=== PATIENT | female | born 1935 | race Caucasian/White ===

== ENCOUNTER → 2019-04-10 | Outpatient (CLI) | payer MEDICARE, OTHER | LOC: CARD 10:28 | PROVIDERS: ATTEND Family Medicine | DX: I08.0 Rheumatic disorders of both mitral and aortic valves (principal) | CPT/HCPCS: 93306 ==

== ENCOUNTER → 2020-10-21 | Outpatient (CLI) | payer MEDICARE, OTHER | LOC: CARD 14:01 | PROVIDERS: ATTEND Family Medicine | DX: I08.0 Rheumatic disorders of both mitral and aortic valves (principal) | CPT/HCPCS: 93306 ==

== ENCOUNTER → 2021-09-22 | Outpatient (CLI) | payer MEDICARE, OTHER | LOC: CARD 12:00 | PROVIDERS: ATTEND Family Medicine | DX: I08.0 Rheumatic disorders of both mitral and aortic valves (principal) | CPT/HCPCS: 93306 ==

== ENCOUNTER 2022-10-15 09:18 | Inpatient (IN) | payer MEDICARE, OTHER ==
[~2022-10-15] VITALS: Ht 157.4 cm; Wt 65.7 kg
[2022-10-15] VITALS (8 sets, daily range): BP systolic 123–211; BP diastolic 65–127
--- NOTE | 2022-10-15 09:38 | ED Cardiac General ---
History of Present Illness General Chief Complaint: Cardiac/General Problems Stated Complaint: ABN EKG Source: patient, RN/MD Exam Limitations: no limitations History of Present Illness Date Seen by Provider: Oct 15, 2022 Time Seen by Provider: 09:34 Initial Comments 87yoF with past medical history most notable for hypertension coming in as a referral from the clinic. Roughly 3 days ago she had a couple minute episode where her legs were feeling weak bilaterally and she had some right arm discomfort which was more throbbing in nature. When this happens, she takes a peppermint and the pain immediately goes away. She has been doing this for over a year. Happens maybe once every several weeks. She was just resting when it happened. Denies any nausea or vomiting associated with it, no sweats, fever, chest pain, shortness of breath, abdominal pain, focal weakness or numbness, vision changes, headache, cough, or any other concerns. Allergies and Home Medications Allergies Coded Allergies: No Known Drug Allergies (Unverified , 10/15/22) Patient Home Medication List Home Medication List Reviewed: Yes Review of Systems Review of Systems Constitutional: No fever EENTM: No Symptoms Reported Respiratory: No Symptoms Reported Cardiovascular: No Symptoms Reported Gastrointestinal: No Symptoms Reported Genitourinary: No Symptoms Reported Musculoskeletal: see HPI Psychiatric/Neurological: See HPI Past Pqwhehv-Wxicmx-Uwrnbs Hx Patient Social History Tobacco Use?: No Substance use?: No Alcohol Use?: No Physical Exam Vital Signs Vital Signs - First Documented 10/15/22 09:23 Temp 36.2 Pulse 92 Resp 20 B/P (MAP) 201/101 (134) Pulse Ox 97 O2 Delivery Room Air Capillary Refill : Height, Weight, BMI Height: '" Weight: lbs. oz. kg; BMI Method: General Appearance: No Apparent Distress, WD/WN HEENT: PERRL/EOMI, Normal ENT Inspection, Pharynx Normal Neck: Full Range of Motion, Normal Inspection, Non Tender, Supple Respiratory: Chest Non Tender, Lungs Clear, Normal Breath Sounds, No Accessory Muscle Use, No Respiratory Distress Cardiovascular: Regular Rate, Rhythm, Normal Peripheral Pulses, Systolic Murmur Gastrointestinal: Normal Bowel Sounds, Non Tender, Soft; No Distended, No Guarding Extremity: Normal Capillary Refill, Normal Inspection, Normal Range of Motion, Non Tender, No Calf Tenderness, No Pedal Edema Neurologic/Psychiatric: Alert, No Motor/Sensory Deficits, Normal Mood/Affect Skin: Normal Color, Warm/Dry Progress/Results/Core Measures Results/Orders Lab Results Laboratory Tests Test 10/15/22 09:43 Range/Units White Blood Count 9.1 4.3-11.0 10^3/uL Red Blood Count 4.41 3.80-5.11 10^6/uL Hemoglobin 13.6 11.5-16.0 g/dL Hematocrit 39 35-52 % Mean Corpuscular Volume 89 80-99 fL Mean Corpuscular Hemoglobin 31 25-34 pg Mean Corpuscular Hemoglobin Concent 35 32-36 g/dL Red Cell Distribution Width 13.2 10.0-14.5 % Platelet Count 322 130-400 10^3/uL Mean Platelet Volume 9.1 9.0-12.2 fL Immature Granulocyte % (Auto) 0 % Neutrophils (%) (Auto) 71 42-75 % Lymphocytes (%) (Auto) 17 12-44 % Monocytes (%) (Auto) 7 0-12 % Eosinophils (%) (Auto) 4 0-10 % Basophils (%) (Auto) 1 0-10 % Neutrophils # (Auto) 6.4 1.8-7.8 10^3/uL Lymphocytes # (Auto) 1.6 1.0-4.0 10^3/uL Monocytes # (Auto) 0.7 0.0-1.0 10^3/uL Eosinophils # (Auto) 0.3 0.0-0.3 10^3/uL Basophils # (Auto) 0.1 0.0-0.1 10^3/uL Immature Granulocyte # (Auto) 0.0 0.0-0.1 10^3/uL Prothrombin Time 12.9 12.2-14.7 SEC INR Comment 0.9 0.8-1.4 Activated Partial Thromboplast Time 32 24-35 SEC Sodium Level 139 135-145 MMOL/L Potassium Level 4.3 3.6-5.0 MMOL/L Chloride Level 102 98-107 MMOL/L Carbon Dioxide Level 27 21-32 MMOL/L Anion Gap 10 5-14 MMOL/L Blood Urea Nitrogen 16 7-18 MG/DL Creatinine 0.67 0.60-1.30 MG/DL Estimat Glomerular Filtration Rate 85 BUN/Creatinine Ratio 24 Glucose Level 97 70-105 MG/DL Calcium Level 9.8 8.5-10.1 MG/DL Corrected Calcium 9.6 8.5-10.1 MG/DL Magnesium Level 2.3 1.6-2.4 MG/DL Total Bilirubin 0.5 0.1-1.0 MG/DL Aspartate Amino Transf (AST/SGOT) 30 5-34 U/L Alanine Aminotransferase (ALT/SGPT) 14 0-55 U/L Alkaline Phosphatase 74 40-136 U/L Troponin I 0.88 *H <0.30 NG/ML Pro-B-Type Natriuretic Peptide 2190.0 H <450.0 PG/ML Total Protein 6.9 6.4-8.2 GM/DL Albumin 4.3 3.2-4.5 GM/DL Lipase 27 8-78 U/L My Orders Orders - MARIA FERNANDA MAY MD Cbc With Automated Diff (10/15/22 09:34) Magnesium (10/15/22 09:34) Chest 1 View Ap/Pa Only (10/15/22 09:34) Ekg Tracing (10/15/22 09:34) Comprehensive Metabolic Panel (10/15/22 09:34) Protime With Inr (10/15/22 09:34) Partial Thromboplastin Time (10/15/22 09:34) O2 (10/15/22 09:34) Monitor-Rhythm Ecg Trace Only (10/15/22 09:34) Ed Iv/Invasive Line Start (10/15/22 09:34) Lipase (10/15/22 09:34) Troponin I Fs (10/15/22 09:34) Probnp Fs (10/15/22 09:34) Aspirin Chewable Tablet (Baby Aspirin Ch (10/15/22 10:30) Nitroglycerin Ointment (Nitrobid Ointme (10/15/22 10:30) Medications Given in ED Current Medications Medications Dose Ordered Sig/Teresa Route Start Time Stop Time Status Last Admin Dose Admin Aspirin 324 mg ONCE ONCE PO 10/15/22 10:30 10/15/22 10:31 DC 10/15/22 10:36 324 MG Nitroglycerin 1 inch ONCE ONCE TOP 10/15/22 10:30 10/15/22 10:31 DC 10/15/22 10:37 1 INCH Vital Signs/I&O 10/15/22 09:23 Temp 36.2 Pulse 92 Resp 20 B/P (MAP) 201/101 (134) Pulse Ox 97 O2 Delivery Room Air Progress Progress Note : Progress Note 87-year-old female being referred from walk-in clinic due to right arm pain and leg weakness. ABCs were intact and vitals were stable on presentation. Physical exam with no weakness or numbness noted. She does have clear systolic murmur. EKG with signs of LVH mostly with no STEMI. An IV was placed and basic labs were obtained including cardiac biomarkers. Blood pressure was 200/100 on arrival. She was given aspirin as well as Nitropaste. Labs significant for elevated troponin at 0.88 and elevated pro BNP around 1999. It is possible she was having an atypical ACS type picture and an event that potentially was missed. I contacted Dr. Logan. He believes this could be a type II NSTEMI in t he setting of elevated blood pressure, but would like to trend her troponins accordingly and monitor her. I then contacted Dr. Ziegler who will admit the patient to the cardiac stepdown unit for further evaluation and management under observation status. Initial ECG Impression Date: Oct 15, 2022 Initial ECG Impression Time: 09:28 Initial ECG Rate: 81 Initial ECG Rhythm: Normal Sinus Comment Narrow QRS, left axis deviation, LVH by aVL criteria, ST depression in the high lateral leads, no STEMI, no prior EKG to compare to Diagnostic Imaging Diagonstic Imaging: Xray (chest) Comments [facility], [place] NAME: LO[facility] REC#: [id number] PT STATUS: REG ER : 1935 PHYSICIAN: MARIA FERNANDA MAY MD ADMIT DATE: 10/15/22/ER FS Draft Date of Exam:10/15/22 CHEST 1 VIEW AP/PA ONLY INDICATION: Chest pain Frontal chest obtained at 9:40 a.m. Heart is mildly enlarged. There is hyperinflation. There is no focal infiltrate or pneumothorax or pleural fluid. IMPRESSION: Cardiomegaly and hyperinflation with no acute process in the chest. Dictated on workstation # [id number] Dict: 10/15/22 0948 Trans: 10/15/22 0949 [facility] [id number] Interpreted by: RITESH RAM MD Electronically signed by: Departure Impression Primary Impression: NSTEMI (non-ST elevated myocardial infarction) Disposition: 30 STILL A PATIENT Condition: Stable Admissions Decision to Admit Reason: Admit from ER (General) Decision to Admit/Date: Oct 15, 2022 Time/Decision to Admit Time: 10:50 Transfer Method of Transfer: EMS Departure-Patient Inst. Referrals: WINIFRED OSMAN APRN (PCP) Primary Care Physician [facility] [place] Primary Care Physician MARIA FERNANDA MAY MD Oct 15, 2022 09:38
--- NOTE | 2022-10-15 09:49 | Diagnostic Imaging Report ---
INDICATION: Chest pain Frontal chest obtained at 9:40 a.m. Heart is mildly enlarged. There is hyperinflation. There is no focal infiltrate or pneumothorax or pleural fluid. IMPRESSION: Cardiomegaly and hyperinflation with no acute process in the chest. Dictated by: Dictated on workstation # [id number]
[2022-10-15 09:51] LABS: BASOPHILS # (AUTO) 0.1 10^3/uL (0.0-0.1); BASOPHILS % (AUTO) 1 % (0-10); EOSINOPHILS # (AUTO) 0.3 10^3/uL (0.0-0.3); EOSINOPHILS % (AUTO) 4 % (0-10); HEMATOCRIT 39 % (35-52); HEMOGLOBIN 13.6 g/dL (11.5-16.0); LYMPHOCYTES # (AUTO) 1.6 10^3/uL (1.0-4.0); LYMPHOCYTES % (AUTO) 17 % (12-44); MEAN CORPUSCULAR HEMOGLOBIN 31 pg (25-34); MEAN CORPUSCULAR HGB CONC 35 g/dL (32-36); MEAN CORPUSCULAR VOLUME 89 fL (80-99); MEAN PLATELET VOLUME 9.1 fL (9.0-12.2); MONOCYTES # (AUTO) 0.7 10^3/uL (0.0-1.0); MONOCYTES % (AUTO) 7 % (0-12); NEUTROPHILS # (AUTO) 6.4 10^3/uL (1.8-7.8); NEUTROPHILS % (AUTO) 71 % (42-75); PLATELET COUNT 322 10^3/uL (130-400); WHITE BLOOD COUNT 9.1 10^3/uL (4.3-11.0)
[2022-10-15 10:19] LABS: INR 0.9 (0.8-1.4); PROTHROMBIN TIME PATIENT 12.9 SEC (12.2-14.7)
[2022-10-15 10:22] LABS: CALCIUM 9.8 MG/DL (8.5-10.1); CREATININE SERUM 0.67 MG/DL (0.60-1.30); POTASSIUM 4.3 MMOL/L (3.6-5.0)
[2022-10-15 10:23] LABS: ALBUMIN 4.3 GM/DL (3.2-4.5); BILIRUBIN,TOTAL 0.5 MG/DL (0.1-1.0); MAGNESIUM 2.3 MG/DL (1.6-2.4); TOTAL PROTEIN 6.9 GM/DL (6.4-8.2)
[2022-10-15] MEDS ORDERED: ASPIRIN 81 MG CHEW (CHILDREN'S ASA) PO ONE (10:30)
[2022-10-15] MEDS ORDERED: NITROGLYCERIN 2% OINT 1 GM UNIT DOSE PACKET TOP ONE (10:30)
[2022-10-15] MEDS ORDERED: morphine INJ 4 MG/ML 1 ML (VIAL/SYRINGE) IV PRN (12:45)
[2022-10-15] MEDS ORDERED: ONDANSETRON 4 MG/2 ML (SDV) Z0FRAN IVP PRN (12:45)
[2022-10-15] MEDS ORDERED: NITROGLYCERIN 0.4 MG SL TABS BTL 25'S SL PRN (12:45)
[2022-10-15] MEDS ORDERED: PATIENT MAY USE OWN MEDS, ALL PO SCH (12:45)
[2022-10-15] MEDS: cloNIDine 0.1 MG (CATAPRES) TAB PO PRN ×2 (12:53→18:27)
[2022-10-15] MEDS ORDERED: FLAX100032 PO (14:01)
[2022-10-15] MEDS ORDERED: LECI400C PO (14:01)
[2022-10-15] MEDS ORDERED: VITAMIN PO (14:01)
[2022-10-15] MEDS ORDERED: LISI20TA26 PO (14:01)
[2022-10-15] MEDS ORDERED: GARL500C2 PO (14:01)
[2022-10-15] MEDS ORDERED: IBUP-2473 PO ×2 (14:01)
[2022-10-15] MEDS ORDERED: ASPI-1238 PO (14:01)
[2022-10-15] MEDS ORDERED: LATA5DRO OU (14:01)
[2022-10-15] MEDS ORDERED: BRIMON0.2 OS (14:01)
[2022-10-15] MEDS ORDERED: CALC-823 PO (14:01)
[2022-10-15] MEDS ORDERED: CYAN500T8 PO (14:01)
[2022-10-15] MEDS ORDERED: VIT1CAPS44 PO (14:01)
--- NOTE | 2022-10-15 14:23 | History & Physical ---
LIDIA SANZ 10/15/22 1423: History of Present Illness History of Present Illness Reason for visit/HPI Ms. Blackmon is an 87 y/o female with a PMHx of HTN who presents with atypical chest pain and elevated troponins. The patient reports for the past 2-3 years she has been experiencing intermittent chest pain, bilateral arm pain, upper back pain, and neck pain. Patient reports the pain will occur at rest and will sometimes wake her from her sleep. Patient states activity does not exacerbate or bring about the chest pain. When the patient is experiencing this sharp, radiating pain, she will eat a peppermint and states the pain subsides. Patient recently switched PCPs to [facility] in [place]. Patient made an appointment with [facility] this morning due to R arm pain and bilateral lower extremity weakness she experienced on Saturday. Patient reports the arm pain and weakness have improved since onset. Patient denies any activity or injury that occurred at time of onse t of symptoms. The patient was sent to the [place] ED for evaluation and is being admitted for observation under the Hospitalist service for suspected NSTEMI with Cardiology following. Date of Admission Oct 15, 2022 at 11:14 Date Seen by a Provider: Oct 15, 2022 Time Seen by a Provider: 15:00 I consulted on this patient on 10/15/22 14:16 Attending Physician Amanda Wilson Aprn Admitting Physician Admitting Physician: Liss Angela MD Attending Physician: Liss Angela MD Consult Allergies and Home Medications Allergies Coded Allergies: No Known Drug Allergies (Unverified , 10/15/22) Patient Home Medication List Home Medication List Reviewed: Yes Aspirin (Aspirin EC) 81 Mg Tablet.dr, 81 MG PO HS, (Reported) Entered as Reported by: SMITA MONROE on 10/15/221400 Last Action: Continued Brimonidine Tartrate (Brimonidine Tartrate) 0.2 % Btl, 1 DROP OS BID, (Reported) Entered as Reported by: SMITA MONROE on 10/15/221400 Last Action: Continued Calcium Carbonate (Calcium) 500 Mg Calcium (1250 Mg) Tablet, 500 MG PO BID, (Reported) Entered as Reported by: SMITA MONROE on 10/15/221400 Last Action: Converted Cyanocobalamin (Vitamin B-12) (Vitamin B-12) 500 Mcg Tablet, 500 MCG PO DAILY, (Reported) Entered as Reported by: SMITA MONROE on 10/15/221400 Last Action: Held Flaxseed Oil (Flaxseed) 1,000 Mg Capsule, 1,000 MG PO BID, (Reported) Entered as Reported by: SMITA MONROE on 10/15/221400 Last Action: Held Garlic (Garlic) 500 Mg Capsule, 500 MG PO DAILY, (Reported) Entered as Reported by: SMITA MONROE on 10/15/221400 Last Action: Held Ibuprofen (Ibuprofen) 200 Mg Tablet, 400 MG PO HS, (Reported) Entered as Reported by: SMITA MONROE on 10/15/221400 Last Action: Held Ibuprofen (Ibuprofen) 200 Mg Tablet, 200 MG PO DAILY, (Reported) Entered as Reported by: SMITA MONROE on 10/15/221400 Last Action: Held Latanoprostene Bunod (Vyzulta) 0.024 % Drops, 1 DROP OU HS, (Reported) Entered as Reported by: SMITA MONROE on 10/15/221400 Last Action: Converted Lecithin, Soy (Lecithin) 400 Mg Capsule, 400 MG PO BID, (Reported) Entered as Reported by: SMITA MONROE on 10/15/221400 Last Action: Held Lisinopril (Lisinopril) 20 Mg Tablet, 20 MG PO DAILY, (Reported) Entered as Reported by: SMITA MONROE on 10/15/221400 Last Action: Continued Vit C/E/Zn/Coppr/Lutein/Zeaxan (Preservision Areds 2 Softgel) 250MG-90MG Capsule, 1 EACH PO BID, (Reported) Entered as Reported by: SMITA MONROE on 10/15/221400 Last Action: Held [Vitamin B10] , 1 EA PO HS, (Reported) Entered as Reported by: SMITA OMNROE on 10/15/221400 Last Action: Held Past Scrcxyx-Yjoivv-Btfyzq Hx Patient Social History Number of Children: 6 Tobacco Use?: No Use of E-Cig and/or Vaping dev: No Substance use?: No Alcohol Use?: Yes Alcohol type: Wine Alcohol Frequency: Once in a while Pt feels they are or have been: No Current Status status: No Advance Directives: No Communicates: Verbally Primary Language: Sri [place]ankan Preferred Spoken Language: [place]an Is interpretation needed?: No Sensory deficits: Vision impairment, Hearing impairment Implanted or Applied Medical D: None Past Medical History Surgeries: Orthopedic (bilateral knees) Arthritis (bilateral shoulders) Glaucoma Family Medical History Cancer (father: colon, mother: uterine), Other Conditions/Hx (father: CAD, unspecified age) Review of Systems Constitutional: no symptoms reported EENTM: no symptoms reported Respiratory: dyspnea on exertion Cardiovascular: no symptoms reported; No chest pain, No Hx of Intervention, No palpitations Gastrointestinal: no symptoms reported : No Musculoskeletal: joint pain (bilateral shoulders due to arthritis) Psychiatric/Neurological: No Symptoms Reported Physical Exam Vital Signs Vital Signs - First Documented 10/15/22 09:23 Temp 36.2 Pulse 92 Resp 20 B/P (MAP) 201/101 (134) Pulse Ox 97 O2 Delivery Room Air Capillary Refill : Less Than 3 Seconds Height, Weight, BMI Height: '" Weight: lbs. oz. kg; 26.51 BMI Method: General Appearance: No Apparent Distress, WD/WN Respiratory: Lungs Clear, Normal Breath Sounds, No Accessory Muscle Use, No Respiratory Distress Cardiovascular: Systolic Murmur (4/6) Gastrointestinal: Normal Bowel Sounds, Non Tender, Soft Extremity: No Pedal Edema Neurologic/Psychiatric: Alert, Oriented x3, Normal Mood/Affect Skin: Normal Color, Warm/Dry Assessment/Plan Assessment and Plan Problems: (1) Hypertension Status: Chronic Assessment & Plan: -Monitor BP -Medication reconciliation and resume lisinopril 20mg PO qd -Clonidine 0.1mg PO TID PRN SBP >180, DBP >110 -Metoprolol 25mg PO BID (2) NSTEMI (non-ST elevated myocardial infarction) Status: Acute Assessment & Plan: NSTEMI -Troponin 0.88 -> 1.037 on 10/15 -Appreciate plan per Cardiology -NPO for cardiac catheterization if indicated per Cardiology -ASA 81mg PO qd -Metoprolol 25mg PO BID -Morphine 4mg IV Q3H PRN -Statin therapy and lipid panel -Anti-coagulation - appreciate plan per Cardiology -Echocardiogram (3) Elevated troponin Status: Acute Assessment & Plan: NSTEMI with elevated troponin -Troponin 0.88 -> 1.037 on 10/15 -Appreciate plan per Cardiology -ASA 81mg PO qd -Metoprolol 25mg PO BID -Morphine 4mg IV Q3H PRN -Statin therapy and lipid panel -Anti-coagulation - appreciate plan per Cardiology -Echocardiogram (4) Elevated brain natriuretic peptide (BNP) level Status: Acute Assessment & Plan: Elevated ProBNP of 2190 on 10/15 -Echo pending -There are no clinical signs of heart failure ie peripheral edema, SOA at rest -Continue to monitor patient's condition Admission Diagnosis Admission Status: Observation LISS ANGELA MD 10/15/22 1552: Allergies and Home Medications Allergies Coded Allergies: No Known Drug Allergies (Unverified , 10/15/22) Patient Home Medication List Aspirin (Aspirin EC) 81 Mg Tablet.dr, 81 MG PO HS, (Reported) Entered as Reported by: SMITA MONROE on 10/15/221400 Last Action: Continued Brimonidine Tartrate (Brimonidine Tartrate) 0.2 % Btl, 1 DROP OS BID, (Reported) Entered as Reported by: SMITA MONROE on 10/15/221400 Last Action: Continued Calcium Carbonate (Calcium) 500 Mg Calcium (1250 Mg) Tablet, 500 MG PO BID, (Reported) Entered as Reported by: SMITA MONROE on 10/15/221400 Last Action: Converted Cyanocobalamin (Vitamin B-12) (Vitamin B-12) 500 Mcg Tablet, 500 MCG PO DAILY, (Reported) Entered as Reported by: SMITA MONROE on 10/15/221400 Last Action: Held Flaxseed Oil (Flaxseed) 1,000 Mg Capsule, 1,000 MG PO BID, (Reported) Entered as Reported by: SMITA MONROE on 10/15/221400 Last Action: Held Garlic (Garlic) 500 Mg Capsule, 500 MG PO DAILY, (Reported) Entered as Reported by: SMITA MONROE on 10/15/221400 Last Action: Held Ibuprofen (Ibuprofen) 200 Mg Tablet, 400 MG PO HS, (Reported) Entered as Reported by: SMITA MONROE on 10/15/221400 Last Action: Held Ibuprofen (Ibuprofen) 200 Mg Tablet, 200 MG PO DAILY, (Reported) Entered as Reported by: SMITA MONROE on 10/15/221400 Last Action: Held Latanoprostene Bunod (Vyzulta) 0.024 % Drops, 1 DROP OU HS, (Reported) Entered as Reported by: SMITA MONROE on 10/15/221400 Last Action: Converted Lecithin, Soy (Lecithin) 400 Mg Capsule, 400 MG PO BID, (Reported) Entered as Reported by: SMITA MONROE on 10/15/221400 Last Action: Held Lisinopril (Lisinopril) 20 Mg Tablet, 20 MG PO DAILY, (Reported) Entered as Reported by: SMITA MONROE on 10/15/221400 Last Action: Continued Vit C/E/Zn/Coppr/Lutein/Zeaxan (Preservision Areds 2 Softgel) 250MG-90MG Capsule, 1 EACH PO BID, (Reported) Entered as Reported by: SMITA MONROE on 10/15/221400 Last Action: Held [Vitamin B10] , 1 EA PO HS, (Reported) Entered as Reported by: SMITA MONROE on 10/15/221400 Last Action: Held Supervisory-Addendum Brief Verification & Attestation Participated in pt care: history, MDM, physical Personally performed: exam, history, MDM, supervision of care Care discussed with: Medical Student Procedures: n/a Verification and Attestation of Medical Student E/M Service A medical student performed and documented this service in my presence. I r eviewed and verified all information documented by the medical student and made modifications to such information, when appropriate. I personally performed the physical exam and medical decision making. Liss Angela, Oct 15, 2022,15:52 LIDIA SANZ Oct 15, 2022 14:23 LISS ANGELA MD Oct 15, 2022 15:52
[2022-10-15] MEDS: meTOprolol TARTRATE 25 MG (LOPRESSOR) TABLET PO SCH ×2 (14:38→20:53)
--- NOTE | 2022-10-15 17:25 | Consultation-Cardiology ---
HPI-Cardiology Cardiology Consultation Date of Consultation 10/15/22 Date of Admission Time Seen by Provider: 17:20 Indication: Non-ST elevation myocardial infarction HPI 87-year-old lady with no known cardiac history, reporting knowing about her heart murmur and hypertension. Patient reporting chronic stable angina with shortness of breath and some chest pain described as more of a back pain radiating up to her right shoulder and right side of the jaw and neck with exertion. Has been having more frequent episodes recently. Was seen at her primary care physician and she was sent to the emergency room for evaluation. On my evaluation she was pleasantly laying down comfortably, feeling well. Denied any active pain. Home Medications & Allergies Allergies: Coded Allergies: No Known Drug Allergies (Unverified , 10/15/22) Home Medication List Reviewed: Yes WDV-Qnhagy-Ykvhro Hx Patient Social History Marital Status: Number of Children: 6 Have you traveled recently?: No Alcohol Use?: Yes Past Medical History Discussed below Family Medical History Significant Family History: Cancer (father: colon, mother: uterine), Other Conditions/Hx (father: CAD, unspecified age) Family Medical Hx Noncontributory Review of Systems-General Review of Systems Constitutional: no symptoms reported EENTM: no symptoms reported Respiratory: dyspnea on exertion Cardiovascular: see HPI, chest pain; No edema, No Hx of Intervention, No palpitations, No syncope, No vascular heart diseas, No other Gastrointestinal: no symptoms reported, see HPI Genitourinary: no symptoms reported, see HPI : No Musculoskeletal: joint pain (bilateral shoulders due to arthritis) Skin: no symptoms reported, see HPI Psychiatric/Neurological: No Symptoms Reported Reviewed Test Results Reviewed Test Results Lab Laboratory Tests Test 10/15/22 09:43 10/15/22 13:10 Range/Units White Blood Count 9.1 4.3-11.0 10^3/uL Red Blood Count 4.41 3.80-5.11 10^6/uL Hemoglobin 13.6 11.5-16.0 g/dL Hematocrit 39 35-52 % Mean Corpuscular Volume 89 80-99 fL Mean Corpuscular Hemoglobin 31 25-34 pg Mean Corpuscular Hemoglobin Concent 35 32-36 g/dL Red Cell Distribution Width 13.2 10.0-14.5 % Platelet Count 322 130-400 10^3/uL Mean Platelet Volume 9.1 9.0-12.2 fL Immature Granulocyte % (Auto) 0 % Neutrophils (%) (Auto) 71 42-75 % Lymphocytes (%) (Auto) 17 12-44 % Monocytes (%) (Auto) 7 0-12 % Eosinophils (%) (Auto) 4 0-10 % Basophils (%) (Auto) 1 0-10 % Neutrophils # (Auto) 6.4 1.8-7.8 10^3/uL Lymphocytes # (Auto) 1.6 1.0-4.0 10^3/uL Monocytes # (Auto) 0.7 0.0-1.0 10^3/uL Eosinophils # (Auto) 0.3 0.0-0.3 10^3/uL Basophils # (Auto) 0.1 0.0-0.1 10^3/uL Immature Granulocyte # (Auto) 0.0 0.0-0.1 10^3/uL Prothrombin Time 12.9 12.2-14.7 SEC INR Comment 0.9 0.8-1.4 Activated Partial Thromboplast Time 32 24-35 SEC Sodium Level 139 135-145 MMOL/L Potassium Level 4.3 3.6-5.0 MMOL/L Chloride Level 102 98-107 MMOL/L Carbon Dioxide Level 27 21-32 MMOL/L Anion Gap 10 5-14 MMOL/L Blood Urea Nitrogen 16 7-18 MG/DL Creatinine 0.67 0.60-1.30 MG/DL Estimat Glomerular Filtration Rate 85 BUN/Creatinine Ratio 24 Glucose Level 97 70-105 MG/DL Calcium Level 9.8 8.5-10.1 MG/DL Corrected Calcium 9.6 8.5-10.1 MG/DL Magnesium Level 2.3 1.6-2.4 MG/DL Total Bilirubin 0.5 0.1-1.0 MG/DL Aspartate Amino Transf (AST/SGOT) 30 5-34 U/L Alanine Aminotransferase (ALT/SGPT) 14 0-55 U/L Alkaline Phosphatase 74 40-136 U/L Troponin I 0.88 *H 1.037 *H <0.028 NG/ML Pro-B-Type Natriuretic Peptide 2190.0 H <450.0 PG/ML Total Protein 6.9 6.4-8.2 GM/DL Albumin 4.3 3.2-4.5 GM/DL Lipase 27 8-78 U/L Physical Exam Physical Exam Vital Signs Vital Signs - First Documented 10/15/22 09:23 Temp 36.2 Pulse 92 Resp 20 B/P (MAP) 201/101 (134) Pulse Ox 97 O2 Delivery Room Air Capillary Refill : Less Than 3 Seconds Height, Weight, BMI Height: '" Weight: lbs. oz. kg; 26.51 BMI Method: General Appearance: No Apparent Distress, WD/WN HEENT: PERRL/EOMI, Normal ENT Inspection, Pharynx Normal Neck: Full Range of Motion, Normal Inspection, Non Tender, Supple Respiratory: Lungs Clear, Normal Breath Sounds, No Accessory Muscle Use, No Respiratory Distress Cardiovascular: Systolic Murmur (12/20) Gastrointestinal: Normal Bowel Sounds, Non Tender, Soft Extremity: No Pedal Edema Neurologic/Psychiatric: Alert, Oriented x3, Normal Mood/Affect Skin: Normal Color, Warm/Dry A/P-Cardiology Admission Diagnosis Non-ST elevation myocardial infarction Hypertensive urgency Aortic stenosis Assessment/Plan Non-ST elevation myocardial infarction, has been having chronic stable angina become more unstable at this time I recommend conservative management for now, planning to evaluate stress test once clinically more stable Attempt for medical therapy and will consider coronary angiogram if needed Hypertensive urgency, Started on metoprolol 25 mg twice daily and lisinopril 20 mg daily Received a dose of clonidine Continue to monitor blood pressure closely. 2D echo was done showing moderate LVH, normal systolic function, moderate aortic valve stenosis. Moderate aortic stenosis, could be the reason for her chest pain and mild elevation in troponin. Continue to monitor for now. KENNA BROWN MD Oct 15, 2022 17:25
[2022-10-15] MEDS: CALCIUM CARBONATE 600 MG (CALCARB) TAB PO SCH (17:40)
[2022-10-15] MEDS: ASPIRIN E.C. 81 MG (ECOTRIN) TAB PO SCH (20:53)
[2022-10-15] MEDS: BRIMONIDINE 0.2% (ALPHAGAN) OPHTH SOLN 5 ML BTL OS SCH (20:53)
[2022-10-15] MEDS ORDERED: LATANOPROSTENE BUNOD OU SCH (21:00)
[2022-10-15] MEDS ORDERED: NON-FORMULARY MEDICATION 1 EA EA (Calcium Carbonate (Calcium) 500 MG) PO SCH (21:00)
[2022-10-16] VITALS (22 sets, daily range): BP systolic 108–163; BP diastolic 65–108
[2022-10-16 05:08] LABS: HEMATOCRIT 40 % (35-52); HEMOGLOBIN 13.2 g/dL (11.5-16.0); MEAN CORPUSCULAR HEMOGLOBIN 31 pg (25-34); MEAN CORPUSCULAR HGB CONC 33 g/dL (32-36); MEAN CORPUSCULAR VOLUME 92 fL (80-99); PLATELET COUNT 298 10^3/uL (130-400); WHITE BLOOD COUNT 7.9 10^3/uL (4.3-11.0)
[2022-10-16 05:22] LABS: ALBUMIN 3.8 GM/DL (3.2-4.5); POTASSIUM 4.3 MMOL/L (3.6-5.0)
[2022-10-16 05:24] LABS: CALCIUM 9.4 MG/DL (8.5-10.1)
[2022-10-16 05:25] LABS: TOTAL PROTEIN 6.5 GM/DL (6.4-8.2)
[2022-10-16 05:27] LABS: BILIRUBIN,TOTAL 0.5 MG/DL (0.1-1.0)
[2022-10-16 05:28] LABS: CREATININE SERUM 0.79 MG/DL (0.60-1.30)
--- NOTE | 2022-10-16 07:52 | Cardiac Procedure Note-CS/ASA ---
Pre-Procedure Note Pre-Op Procedure Note Date of Available H&P: Oct 16, 2022 Date H&P Reviewed: Oct 16, 2022 Time H&P Reviewed: 07:52 History & Physical: H&P Reviewed, Patient Examed, No changes noted Pre-Operative Diagnosis: Non-ST WI Conscious Sedation Pre-Proced Time 07:52 ASA Score 3 For ASA 3 and 4: Consider anesthesia and medical clearance. Also, for patients with a history of failed moderate sedation consider anesthesia. Airway Lungs Heart ASA score ASA 1: a normal healthy patient ASA 2: a patient with a mild systemic disease (mid diabetes, controlled hypertension, obesity ASA 3: a patient with a severe systemic disease that limits activity (angina, COPD, prior Myocardial infarction) ASA 4: a patient with an incapacitating disease that is a constant threat to life (CHF, renal failure) ASA 5: a moribund patient not expected to survive 24 hrs. (ruptured aneurysm) ASA 6: a declared brain- patient whose organs are being harvested. For emergent operations, add the letter E after the classification Mallampati Classification Grade 3 Sedation Plan Analgesia, Amnesia, Plan communicated to team members, Discussed options with patient/fam, Discussed risks with patient/fam The patient is an appropriate candidate to undergo the planned procedure, sedation, and anesthesia. The patient immediately re-assessed prior to indication. KENNA BROWN MD Oct 16, 2022 07:52
--- NOTE | 2022-10-16 08:07 | Cardiology Progress Note ---
Subjective Date Seen by Provider: Oct 16, 2022 Time Seen by Provider: 08:05 Subjective/Events-last exam Patient is laying down in bed, feeling better. Review of Systems General: No Chills, No Night Sweats, No Fatigue, No Malaise, No Appetite, No Other HEENT: No Head Aches, No Visual Changes, No Eye Pain, No Ear Pain, No Dysphasia, No Sinus Congestion, No Post Nasal Drip, No Sore Throat, No Other Pulmonary: No Dyspnea, No Cough, No Pleuritic Chest Pain, No Other Cardiovascular: No: Chest Pain, Palpitations, Orthopnea, Paroxysmal Noc. Dyspnea, Edema, Lt Headedness, Other Objective-Cardiology Exam Last Set of Vital Signs Vital Signs 10/16/22 07:40 Temp 36.0 Pulse 73 Resp 23 B/P (MAP) 153/80 (104) Pulse Ox 96 O2 Delivery Room Air I&O Intake and Output 10/16/22 00:00 Intake Total 420 ml Balance 420 ml Intake Oral 420 ml # Voids 1 Daily Weight Change No General: Alert, Oriented X3, Cooperative HEENT: Atraumatic, PERRLA Neck: Supple, No JVD, No Thyromegaly Lungs: Clear to Auscultation, Normal Air Movement Heart: Regular Rate, Normal S1, Normal S2, Other (Systolic murmur at the left sternal border) Abdomen: Normal Bowel Sounds, Soft, No Tenderness, No Hepatosplenomegaly, No Masses Extremities: No Clubbing, No Cyanosis, No Edema, Normal Pulses, No Tenderness/Swelling Skin: No Rashes, No Breakdown, No Significant Lesion Neuro: Normal Gait, Normal Speech, Strength at 5/5 X4 Ext, Normal Tone, Sensation Intact Psych/Mental Status: Mental Status NL, Mood NL Results Lab Laboratory Tests 10/15/22 09:43 10/16/22 04:26 A/P-Cardiology Admission Diagnosis Non-ST elevation myocardial infarction Hypertensive urgency Aortic stenosis Assessment/Plan Non-ST elevation myocardial infarction, has been having chronic stable angina become more unstable at this time I initially recommended conservative management, have worsening of troponin level, continue to rise troponin Discussed the management plan recommended cardiac catheterization possible PTCA Coronary artery disease in addition to aortic valve stenosis, non-ST elevation myocardial infarction Planning for cardiac catheterization today Hypertensive urgency, Started on metoprolol 25 mg twice daily and lisinopril 20 mg daily Received a dose of clonidine Blood pressure is better controlled, continue to monitor 2D echo was done showing moderate LVH, normal systolic function, moderate aortic valve stenosis. Moderate aortic stenosis, could be the reason for her chest pain and mild elevation in troponin. Continue to monitor for now. KENNA BROWN MD Oct 16, 2022 08:07
[2022-10-16] MEDS: CALCIUM CARBONATE 600 MG (CALCARB) TAB PO SCH ×2 (08:30→18:41)
[2022-10-16] MEDS ORDERED: LIDOCAINE 1% INJ 20 ML VIAL ONE (08:48)
[2022-10-16] MEDS ORDERED: HEParin (CATH LAB) 2,000 ML IV ONE (08:49)
[2022-10-16] MEDS ORDERED: NS IV 1000 ML 0 ML ONE (08:49)
[2022-10-16] MEDS ORDERED: lisINopril 20 MG (PRINIVIL) TABLET PO SCH (09:00)
[2022-10-16] MEDS: meTOprolol TARTRATE 25 MG (LOPRESSOR) TABLET PO SCH ×2 (09:05→21:08)
[2022-10-16] MEDS: BRIMONIDINE 0.2% (ALPHAGAN) OPHTH SOLN 5 ML BTL OS SCH ×2 (09:07→21:08)
[2022-10-16] MEDS: NS IV 1000 ML 1,000 ML IV SCH ×3 (09:07→23:45)
--- NOTE | 2022-10-16 10:47 | Progress Note - Hospitalist ---
LIDIA SANZ 10/16/22 1047: Subjective HPI/CC On Admission Date Seen by Provider: Oct 16, 2022 Time Seen by Provider: 09:30 Subjective/Events-last exam Ms. Blackmon is an 87 y/o female with a PMHx of HTN who presents with atypical chest pain and elevated troponins. The patient was sent to the [facility] on 10/15 for evaluation and has been admitted for observation under the Hospitalist service for suspected NSTEMI with Cardiology following. The patient reports she is feeling well today. Patient denies chest pain, SOA at rest, head ache, abdominal pain, or N/V/D. Per Cardiology the patient is scheduled for cardiac catheterization this afternoon. Patient is agreeable to plan. Patient denies questions or concerns at this time. Review of Systems General: No Malaise; Appetite HEENT: No Head Aches, No Visual Changes Pulmonary: No Dyspnea, No Cough Cardiovascular: No: Chest Pain, Edema Gastrointestinal: No: Nausea, Vomiting, Abdominal Pain, Diarrhea Objective Exam Vital Signs Vital Signs Date Time Temp Pulse Resp B/P (MAP) Pulse Ox O2 Delivery O2 Flow Rate FiO2 10/16/22 07:40 36.0 73 23 153/80 (104) 96 Room Air Capillary Refill : Less Than 3 Seconds General Appearance: No Apparent Distress, WD/WN Respiratory: No Accessory Muscle Use, No Respiratory Distress, Wheezing (mild wheezing bilaterally) Cardiovascular: No Edema, Systolic Murmur (4/6 - aortic stenosis) Gastrointestinal: Normal Bowel Sounds, Non Tender, Soft Extremity: No Pedal Edema Neurologic/Psychiatric: Alert, Oriented x3, Normal Mood/Affect Skin: Normal Color, Warm/Dry Results/Procedures Lab Laboratory Tests 10/16/22 04:26 Patient resulted labs reviewed. Procedures Echocardiogram on 10/15: LV: EF 55-65% Aortic valve: moderate stenosis Tricuspid valve: mild-moderate regurgitation Pulmonary arteries: 25-30mmHg Assessment/Plan Assessment and Plan Assess & Plan/Chief Complaint NSTEMI with elevated troponins Diagnosis/Problems Diagnosis/Problems (1) Hypertension Status: Chronic Assessment & Plan: -Monitor BP -Lisinopril 20mg PO qd -Clonidine 0.1mg PO TID PRN SBP >180, DBP >110 -Metoprolol 25mg PO BID, monitor HR (2) NSTEMI (non-ST elevated myocardial infarction) Status: Acute Assessment & Plan: NSTEMI -Troponin 0.88 -> 1.037 -> 1.235 -Appreciate plan per Cardiology, cardiac catheterization on 10/16 -NPO -ASA 81mg PO qd -Metoprolol 25mg PO BID -Morphine 4mg IV Q3H PRN -Lipid panel indicated high intensity statin with LDL of 144 - atorvastatin 40mg PO qd -Anti-coagulation - appreciate plan per Cardiology -Echocardiogram - resulted. (3) Elevated troponin Status: Acute Assessment & Plan: NSTEMI with elevated troponin -Troponin 0.88 -> 1.037 on 10/15 -Appreciate plan per Cardiology. 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/16 -ASA 81mg PO qd -Metoprolol 25mg PO BID -Morphine 4mg IV Q3H PRN -Atorvastatin 40mg PO qd -Anti-coagulation - appreciate plan per Cardiology -Echocardiogram - resulted (4) Elevated brain natriuretic peptide (BNP) level Status: Acute Assessment & Plan: Elevated ProBNP of 2190 on 10/15 -Echo pending - completed on 10/15, results do not indicate heart failure -There are no clinical signs of heart failure ie peripheral edema, SOA at rest -Continue to monitor patient's condition (5) Hyperlipidemia Status: Chronic Assessment & Plan: Total cholesterol 225, LDL 144 -Begin atorvastatin 40mg PO qd Qualifiers: Qualified Codes: E78.2 - Mixed hyperlipidemia HANNA CHEEMA DO 10/16/22 1936: Objective Exam General Appearance: No Apparent Distress, WD/WN Respiratory: No Accessory Muscle Use, Wheezing (mild wheezing bilaterally) Cardiovascular: Regular Rate, Rhythm, Systolic Murmur (4/6 - aortic stenosis) Assessment/Plan Assessment and Plan Assess & Plan/Chief Complaint Assessment: NSTEMI Cardiac murmur Wheezing Plan: Cath Monitor wheezing Supervisory-Addendum Brief Verification & Attestation Participated in pt care: history, MDM, physical Personally performed: exam, history, MDM, supervision of care Care discussed with: Medical Student Procedures: n/a Results interpretation: Verified all documentation Verification and Attestation of Medical Student E/M Service A medical student performed and documented this service in my presence. I revie wed and verified all information documented by the medical student and made modifications to such information, when appropriate. I personally performed the physical exam and medical decision making. Hanna Cheema, Oct 16, 2022,19:35 LIDIA SANZ Oct 16, 2022 10:47 HANNA CHEEMA DO Oct 16, 2022 19:36
[2022-10-16] MEDS ORDERED: fentaNYL INJ 100 MCG/2 ML AMP ONE (11:11)
[2022-10-16] MEDS ORDERED: MIDAZOLAM 5 MG/5 ML (VERSED) VIAL ONE (11:11)
[2022-10-16] MEDS ORDERED: NITRO DRIP 25000 MCG/D5W 250 ML IV ONE (11:27)
[2022-10-16] MEDS ORDERED: HEParin 1000 UNIT/ML (10ML VIAL) FOR BOLUS ONE (11:27)
[2022-10-16] MEDS ORDERED: VERAPAMIL 5 MG/2 ML (CALAN) VIAL IV ONE (11:27)
--- NOTE | 2022-10-16 12:28 | Cardiac Cath Report ---
Cardiac Cath Report Physician (s)/Cigar Head Piercer (s) Physician KENNA BROWN MD Pre-Procedure Diagnosis Pre-Procedure Diagnosis: Non-ST MN Post-Procedure Note Procedure Start Date: Oct 16, 2022 Name of Procedure: Coronary angiogram Aortic arch angiogram Findings/Procedure Note PROCEDURE NOTE: 87-year-old lady with unstable angina, aortic stenosis, admitted and monitored, had continuous elevation in troponin, cardiac catheterization was advised. After explaining the procedure to the patient, all pros and cons were explained, all questions were answered. The patient signed the consent and then she was placed in the cardiac catheterization laboratory. Groin was prepped in SL fashion local anesthesia was used. Sheath placed in the right radial artery, [place] catheter was advanced and engaged the right and left coronary system, angiogram was done, did not cross the aortic valve, pulled back to the aortic arch and aortic arch angiogram was done. At the end of the procedure the sheath was removed. Vascular band was used FINDINGS: Hemodynamics LV did not cross the aortic valve Aorta 112/64, mean of 85 ANATOMY: Left Main has mild disease nonobstructive disease Left Anterior Descending has 90% stenosis at the ostium, total occlusion proximally getting some collaterals from the right coronary artery Left Circumflex is a large dominant artery with 40% stenosis in the mid circumflex artery, the first obtuse marginal branch is moderate to large in size with 90% stenosis at the midportion Right Coronary Artery is nondominant artery with 40% stenosis at the midportion giving collaterals filling the LAD Aorta evaluation done with aortic arch angiogram showing heavy calcification of the aortic arch, slightly prominent, no dissection or aneurysm. Origin of the brachiocephalic artery left carotid and left subclavian artery were visualized and no significant obstructive disease was noted CONCLUSION: 1. Severe stenosis at the ostial LAD and total occlusion proximal LAD getting some collaterals from the right coronary system 2. Dominant large circumflex artery with 40% stenosis at the midportion, the f irst obtuse marginal branch has 90% stenosis at the bifurcation point. The right coronary artery is nondominant artery with 40% stenosis, the right coronary artery is giving collaterals to the LAD 3. Heavy calcification in the aortic arch with no dissection or aneurysm DISCUSSION AND RECOMMENDATION: Given the patient age I recommend conservative management. We will add Imdur to her current medication. Monitor tolerance and response. Intervention on the obtuse marginal is possible although it is a high risk procedure, I feel that her symptom relief will not improve unless the LAD is operated on and it is considered high risk procedure, if patient was younger we would have considered to bypass surgery. Anesthesia Type: Conscious Sedation Estimated blood loss (mL): 10 ml Contrast Amount: 49 ml Total Radiation Dose: 230 mGy Post-Procedure Diagnosis Post-operative diagnosis: Non-ST elevation myocardial infarction Coronary artery disease Hypertension Hyperlipidemia. KENNA BROWN MD Oct 16, 2022 12:28
[2022-10-16] MEDS ORDERED: NS IV 1000 ML 1,000 ML IV SCH (12:30)
[2022-10-16] MEDS ORDERED: ISOSORBIDE MONONITRATE 30 MG (IMDUR) TAB PO SCH (13:30)
[2022-10-16] MEDS: ASPIRIN E.C. 81 MG (ECOTRIN) TAB PO SCH (21:08)
[2022-10-16] MEDS ORDERED: NS IV 500 ML 500 ML IV ONE (23:00)
[2022-10-17] VITALS: BP 104/60
[2022-10-17 04:04] VITALS: BP 144/71
[2022-10-17 08:00] VITALS: BP 129/103
[2022-10-17] MEDS: CALCIUM CARBONATE 600 MG (CALCARB) TAB PO SCH (08:34)
[2022-10-17] MEDS: BRIMONIDINE 0.2% (ALPHAGAN) OPHTH SOLN 5 ML BTL OS SCH (08:35)
[2022-10-17] MEDS ORDERED: ISOSORBIDE MONONITRATE 30 MG (IMDUR) TAB PO SCH (09:00)
[2022-10-17] MEDS ORDERED: lisINopril 5 MG (PRINIVIL) TABLET PO SCH (09:00)
[2022-10-17] MEDS ORDERED: meTOprolol TARTRATE 25 MG (LOPRESSOR) TABLET PO SCH (09:00)
[2022-10-17] MEDS ORDERED: ISOS30TA82 PO (09:52)
[2022-10-17] MEDS ORDERED: LISI5TAB20 PO (09:52)
[2022-10-17] MEDS ORDERED: METO-333 PO (09:52)
[2022-10-17] MEDS ORDERED: ATOR80TA76 PO (09:52)
--- NOTE | 2022-10-17 11:43 | Cardiology Progress Note ---
Subjective Date Seen by Provider: Oct 17, 2022 Time Seen by Provider: 11:42 Subjective/Events-last exam Patient was seen at bedside, feeling better. No new complaint Review of Systems General: No Chills, No Night Sweats, No Fatigue, No Malaise, No Appetite, No Other HEENT: No Head Aches, No Visual Changes, No Eye Pain, No Ear Pain, No Dysphasia, No Sinus Congestion, No Post Nasal Drip, No Sore Throat, No Other Pulmonary: No Dyspnea, No Cough, No Pleuritic Chest Pain, No Other Cardiovascular: No: Chest Pain, Palpitations, Orthopnea, Paroxysmal Noc. Dyspnea, Edema, Lt Headedness, Other Objective-Cardiology Exam Last Set of Vital Signs Vital Signs I&O Intake and Output 10/17/22 00:00 Intake Total 550 ml Balance 550 ml Intake Oral 550 ml # Voids 6 # Bowel Movements 1 General: Alert, Oriented X3, Cooperative HEENT: Atraumatic, PERRLA Neck: Supple, No JVD, No Thyromegaly Lungs: Clear to Auscultation, Normal Air Movement Heart: Regular Rate, Normal S1, Normal S2, Other (Systolic murmur at the left sternal border) Abdomen: Normal Bowel Sounds, Soft, No Tenderness, No Hepatosplenomegaly, No Masses Extremities: No Clubbing, No Cyanosis, No Edema, Normal Pulses, No Tenderness/Swelling Skin: No Rashes, No Breakdown, No Significant Lesion Neuro: Normal Gait, Normal Speech, Strength at 5/5 X4 Ext, Normal Tone, Sensation Intact Psych/Mental Status: Mental Status NL, Mood NL A/P-Cardiology Admission Diagnosis Non-ST elevation myocardial infarction Hypertensive urgency Aortic stenosis Assessment/Plan Non-ST elevation myocardial infarction, has been having chronic stable angina become more unstable at this time Cardiac catheterization was carried out showing multivessel coronary artery disease. Conservative management is recommended due to her advanced age. Started on Imdur. Coronary artery disease in addition to aortic valve stenosis, non-ST elevation myocardial infarction Cardiac catheterization was done on October 16, 2022 showing severe stenosis at the ostium of the LAD with total occlusion at the proximal LAD getting some collaterals from the right system, dominant large circumflex artery with 40% stenosis at the midportion. First obtuse marginal branch has 90% stenosis at the trifurcation point, right coronary artery is nondominant artery with 40% stenosis giving collaterals to the LAD with heavy calcification in the aortic arch. Conservative management is recommended Hypertensive urgency, Blood pressure was low last night, I decreased her medication dosage and we will monitor tolerance and response 2D echo was done showing moderate LVH, normal systolic function, moderate aortic valve stenosis. Moderate aortic stenosis, could be the reason for her chest pain and mild elevation in troponin. Continue to monitor for now. Okay for discharge and follow-up as an outpatient KENNA BROWN MD Oct 17, 2022 11:43
[2022-10-17] MEDS ORDERED: PATIENT MAY USE OWN MEDS, ALL PO SCH ×2 (12:00→12:15)
[2022-10-17] MEDS ORDERED: LATANOPROSTENE BUNOD OU SCH ×2 (12:00→12:15)
--- NOTE | 2022-10-17 15:28 | Discharge Summary ---
LIDIA SANZ 10/17/22 1528: Diagnosis/Chief Complaint Date of Admission Oct 15, 2022 at 12:33 Date of Discharge Oct 17, 2022 at 11:46 Discharge Date: Oct 17, 2022 Discharge Time: 10:00 Admission Diagnosis Admission Diagnosis NSTEMI, elevated troponin Discharge Diagnosis NSTEMI, elevated troponin Reason Hospital Visit Ms. Blackmon is an 87 y/o female with a PMHx of HTN who presents with atypical chest pain and elevated troponins. The patient reports for the past 2-3 years she has been experiencing intermittent chest pain, bilateral arm pain, upper back pain, and neck pain. Patient reports the pain will occur at rest and will sometimes wake her from her sleep. Patient states activity does not exacerbate or bring about the chest pain. When the patient is experiencing this sharp, radiating pain, she will eat a peppermint and states the pain subsides. Patient recently switched PCPs to [facility] in [place]. Patient made an appointment with [facility] this morning due to R arm pain and bilateral lower extremity weakness she experienced on Saturday. Patient reports the arm pain and weakness have improved since onset. Patient denies any activity or injury that occurred at time of onset of symptoms. The patient was sent to the [place] ED for evaluation and is being admitted for observation under the Hospitalist service for suspected NSTEMI with Cardiology following. Discharge Summary Procedures: Cardiac catheterization Consultations Cardiology Discharge Physical Examination Allergies: Coded Allergies: No Known Drug Allergies (Unverified , 10/15/22) Vitals & I&Os Vital Signs Date Time Temp Pulse Resp B/P (MAP) Pulse Ox O2 Delivery O2 Flow Rate FiO2 10/17/22 11:39 10/17/22 08:00 37.0 84 18 95 Room Air General Appearance: Alert, Oriented X3, No Acute Distress HEENT: Atraumatic Respiratory: Clear to Auscultation, Normal Air Movement Cardiovascular: Other (4/6 systolic murmur - aortic stenosis) Abdominal: Normal Bowel Sounds, Soft, No Tenderness Extremities: No Edema Skin: No Rashes Neuro: Normal Speech Psych/Mental Status: Mental Status NL, Mood NL Hospital Course Was the Problem List Reviewed?: Yes Ms. Blackmon is an 87 y/o female with a PMHx of HTN who presented with atypical chest pain and elevated troponin on 10/15. The patient was seen in the [place] ED and then was transferred to [facility] and admitted to the Hospitalist service with Cardiology following for management of NSTEMI. The patient was in stable condition and heart catheterization was performed on 10/[address] Logan. Catheterization findings included total occlusion at the proximal LAD, getting some collaterals from the right coronary system. Cardiology recommends conservative management given the patient's age. The patient is agreeable to this plan. Post cardiac catheterization, Imdur 15mg PO qd was added to the patient's medication regimen of metoprolol 12.5mg PO BID, lisinopril 5mg PO qd, atorvastatin 80mg PO qd, and ASA 81mg PO qd. On 10/17 the patient was stable for discharge per Hospitalist and Cardiology services. Follow-up instructions have been provided by Hospitalist service and Cardiology, and follow-up with Cardiology and PCP is recommended. This is a brief summary of the patient's course. Further details regarding the patient's stay can be found throughout the patient's chart. Discussion & Recommendations It is recommended that the patient follows-up with Cardiology and PCP. The p atient's medications have been updated with new additional medications. It is recommended that the patient takes medications as prescribed and to contact PCP/Cardiology with concerns regarding medications. If the patient develops chest pain, fever, bleeding, or respiratory distress, it is recommended the patient returns to the hospital. Discharge Instructions to patient/family Please see electronic discharge instructions given to patient. Discharge Medications Reviewed and agree with Discharge Medication list on patient's Discharge Instruction sheet HPI General Chief Complaint: Cardiac/General Problems Stated Complaint: NSTEMI Nursing Triage Note: Patient presents to the ED from [facility] with c/o abnormal EKG. Patient states she had bilateral leg weakness and pain in her right arm on Saturday. Was seeing her PCP today and had a ultrasound of her gallbladder done. Patient reports PCP was concerned about her EKG so she sent her over to the ED for further evaluation.Patient reports arm pain dissipates when she eats a peppermint. Patient denies any chest pain, cough, or fever. Source of Information: Patient Exam Limitations: No Limitations History of Present Illness Date Seen by Provider: Oct 17, 2022 Time Seen by Provider: 10:00 Diagnosis/Problems Diagnosis/Problems (1) Hypertension Status: Chronic Assessment & Plan: -Monitor BP -Lisinopril 20mg PO qd -Clonidine 0.1mg PO TID PRN SBP >180, DBP >110 -Metoprolol 25mg PO BID, monitor HR (2) NSTEMI (non-ST elevated myocardial infarction) Status: Acute Assessment & Plan: NSTEMI -Troponin 0.88 -> 1.037 -> 1.235 -Appreciate plan per Cardiology, cardiac catheterization on 10/16 -NPO -ASA 81mg PO qd -Metoprolol 25mg PO BID -Morphine 4mg IV Q3H PRN -Lipid panel indicated high intensity statin with LDL of 144 - atorvastatin 40mg PO qd -Anti-coagulation - appreciate plan per Cardiology -Echocardiogram - resulted. (3) Elevated troponin Status: Acute Assessment & Plan: NSTEMI with elevated troponin -Troponin 0.88 -> 1.037 on 10/15 -Appreciate plan per Cardiology. cardiac paint laboratory technician on 10/16 -ASA 81mg PO qd -Metoprolol 25mg PO BID -Morphine 4mg IV Q3H PRN -Atorvastatin 40mg PO qd -Anti-coagulation - appreciate plan per Cardiology -Echocardiogram - resulted (4) Elevated brain natriuretic peptide (BNP) level Status: Acute Assessment & Plan: Elevated ProBNP of 2190 on 10/15 -Echo pending - completed on 10/15, results do not indicate heart failure -There are no clinical signs of heart failure ie peripheral edema, SOA at rest -Continue to monitor patient's condition (5) Hyperlipidemia Status: Chronic Assessment & Plan: Total cholesterol 225, LDL 144 -Begin atorvastatin 40mg PO qd Qualifiers: Qualified Codes: E78.2 - Mixed hyperlipidemia KIMBERLY ANGELA MD 10/17/221936: Discharge Summary Discharge Physical Examination Allergies: Coded Allergies: No Known Drug Allergies (Unverified , 10/15/22) HPI General Chief Complaint: Cardiac/General Problems Stated Complaint: NSTEMI Supervisory-Addendum Brief Verification & Attestation Participated in pt care: history, MDM, physical Personally performed: exam, history, MDM, supervision of care Care discussed with: Medical Student Procedures: n/a Verification and Attestation of Medical Student E/M Service A medical student performed and documented this service in my presence. I reviewed and verified all information documented by the medical student and made modifications to such information, when appropriate. I personally performed the physical exam and medical decision making. Kimberly Angela, Oct 17, 2022,19:37 LIDIA SANZ Oct 17, 2022 15:28 KIMBERLY ANGELA MD Oct 17, 2022 19:37
== END 2022-10-17 11:46 | disposition home or self-care (01) | DRG 282 ==
LOC: EDUNIT# 09:18 → ER FS 09:20 → UNDOADMOB 11:14 → CSD 11:14 → OBSVTOIN 12:33 → INTOOBSV 12:33 → CSD 13:34 → OBSVTOIN 10-16 09:47 → UNDODISIN 10-17 11:46
PROVIDERS: ADMIT Family Medicine; ATTEND Family Medicine
PROC: B2111ZZ Fluoroscopy of Multiple Coronary Arteries using Low Osmolar Contrast (ICD-10-PCS; principal; 2022-10-16)
PROC: B3101ZZ Fluoroscopy of Thoracic Aorta using Low Osmolar Contrast (ICD-10-PCS; 2022-10-16)
DX: I21.4 Non-ST elevation (NSTEMI) myocardial infarction (principal); I25.110 Atherosclerotic heart disease of native coronary artery with unstable angina pectoris; I16.0 Hypertensive urgency; I10 Essential (primary) hypertension; I35.0 Nonrheumatic aortic (valve) stenosis; Z66 Do not resuscitate; M19.012 Primary osteoarthritis, left shoulder; M19.011 Primary osteoarthritis, right shoulder; H54.7 Unspecified visual loss; H91.93 Unspecified hearing loss, bilateral; Z79.82 Long term (current) use of aspirin
CPT/HCPCS: 36221; 36415; 71045; 80053; 80061; 83690; 83735; 83880; 84484; 85025; 85027; 85610; 85730; 93005; 93041; 93306; 93454